=== PATIENT | male | born 1980 | race Caucasian/White ===

== ENCOUNTER 2018-06-16 21:16 | Emergency (ER) | payer MEDICAID ==
[~2018-06-16] VITALS: Ht 175.3 cm; Wt 60.4 kg
[2018-06-16] MEDS ORDERED: FAMOTIDINE 20 MG TABLET ONE (21:43)
[2018-06-16] MEDS ORDERED: MAALOX/HYOSCYAMINE/LIDOCAINE 45 ML BTL ONE (21:44)
[2018-06-16] MEDS ORDERED: FAMOTIDINE 20 MG TABLET PO ONE (22:00)
[2018-06-16] MEDS ORDERED: MAALOX/HYOSCYAMINE/LIDOCAINE 45 ML BTL PO ONE (22:00)
[2018-06-16 22:07] LABS: BASOPHILS # (AUTO) 0.04 x10^3/uL (0-0.1); BASOPHILS % (AUTO) 0 % (0-1); EOSINOPHILS # (AUTO) 0.52 x10^3/uL (0-0.4); EOSINOPHILS % (AUTO) 6 % (1-7); LYMPHOCYTES # (AUTO) 1.91 x10^3/uL (1-3.4); LYMPHOCYTES % (AUTO) 20 % (22-44); MD NO; MEAN CORPUSCULAR HEMOGLOBIN 31.4 pg (27.5-34.5); MEAN CORPUSCULAR HGB CONC 33.9 g/dL (33.2-36.2); MEAN CORPUSCULAR VOLUME 92.4 fL (81-97); MEAN PLATELET VOLUME 7.7 fL (7.4-10.4); MONOCYTES # (AUTO) 0.73 x10^3/uL (0.2-0.8); MONOCYTES % (AUTO) 8 % (2-9); NEUTROPHILS # (AUTO) 6.38 x10^3/uL (1.8-6.8); NEUTROPHILS % (AUTO) 67 % (42-75); PLATELET COUNT 271 x10^3/uL (130-400); RED BLOOD COUNT 4.74 x10^6/uL (4.38-5.82); RED CELL DISTRIBUTION WIDTH 13.1 % (9.4-14.8)
[2018-06-16 22:14] LABS: ALANINE AMINOTRANSFERASE 23 U/L (12-78); ALBUMIN 3.8 g/dL (3.4-5.0); ANION GAP 8 mmol/L (5-15); CALCIUM 9.1 mg/dL (8.5-10.1); CHLORIDE 105 mmol/L (98-107)
[2018-06-16 22:16] LABS: ALKALINE PHOSPHATASE 44 U/L (45-117); BILIRUBIN,TOTAL 1.1 mg/dL (0.2-1.0); TOTAL PROTEIN 7.7 g/dL (6.4-8.2)
[2018-06-16 22:50] VITALS: BP 112/70
== END 2018-06-16 22:52 | disposition home or self-care (01) ==
LOC: ED 22:04
DX: K21.0 Gastro-esophageal reflux disease with esophagitis (principal)
CPT/HCPCS: 36415; 71045; 80053; 83690; 85025; 93005; 99285

== ENCOUNTER 2020-11-26 19:10 | Emergency (ER) | payer OTHER, MEDICAID ==
[~2020-11-26] VITALS: Ht 175.3 cm; Wt 60.0 kg
[2020-11-26 19:14] VITALS: BP 114/75
--- NOTE | 2020-11-26 19:34 | NUR ---
PT HERE FOR RIGHT THUMB PAIN AFTER TAKING SELF DEFENSE CLASS YESTERDAY. CMS INTACT, THROBBING ACHY PAIN DESCRIBED BY PT. ERP SAW PT AND ORDERED XRAY. NO OTHER NEEDS AT THIS TIME
== END 2020-11-26 21:28 | disposition home or self-care (01) ==
LOC: ED 19:40
DX: S63.641A Sprain of metacarpophalangeal joint of right thumb, initial encounter (principal); G89.11 Acute pain due to trauma; M79.641 Pain in right hand; M79.89 Other specified soft tissue disorders; K21.9 Gastro-esophageal reflux disease without esophagitis; X58.XXXA Exposure to other specified factors, initial encounter; Y93.89 Activity, other specified; Y92.89 Other specified places as the place of occurrence of the external cause; Y99.8 Other external cause status
CPT/HCPCS: 29125; 99283